=== PATIENT | male | born 2000 | race Caucasian/White ===

== ENCOUNTER → 2020-12-03 12:32 | Outpatient (CLI) | payer MEDICAID, SELFPAY ==
--- NOTE | 2020-12-03 12:41 | XR_ITS ---
PROCEDURE: XR ANKLE WT BEARING LT MIN 3V CLINICAL INDICATION: pain COMPARISON: CR XR FOOT WT BEARING LT 3V from 12/03/2020 FINDINGS: Ankle has an unremarkable appearance. There is borderline pes planus with 2 os navicularis. Os trigonum also noted. IMPRESSION: 1. Negative ankle. 2. Borderline pes planus Dictated by: Dc Rene MD 12/03/2020 14:10 Dc Rene MD in [place] 12/03/2020 14:10
--- NOTE | 2020-12-03 12:41 | XR_ITS ---
PROCEDURE: XR ANKLE WT BEARING RT MIN 3V CLINICAL INDICATION: pain COMPARISON: CR XR FOOT WT BEARING RT 3V from 12/03/2020 FINDINGS: Ankle has an unremarkable appearance. There is moderate pes planus. There is an os trigonum noted. 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 No fracture or dislocation. No lytic or blastic change. IMPRESSION: Pes planus Dictated by: Dc Rene MD 12/03/2020 14:07 Dc Reen MD in [place] 12/03/2020 14:07
== END ==
PROVIDERS: Visit Provider Podiatrist
DX: M25.572 Pain in left ankle and joints of left foot (principal); M25.571 Pain in right ankle and joints of right foot
CPT/HCPCS: 73610; 73630